=== PATIENT | male | born 1980 | race Caucasian/White ===

== ENCOUNTER → 2018-12-30 | Outpatient (CLI) | payer OTHER | LOC: FIMAGING 09:37 | PROVIDERS: ATTEND Clinical Nurse Specialist Adult Health | DX: J90 Pleural effusion, not elsewhere classified (principal); J98.11 Atelectasis; Z79.899 Other long term (current) drug therapy ==

== ENCOUNTER → 2019-03-22 | Outpatient (CLI) | payer OTHER | LOC: FIMAGING 10:01 ==